=== PATIENT | male | born 1960 | race Two or more races ===

== ENCOUNTER 2017-02-05 15:57 | Inpatient (IN) | payer BC ==
[~2017-02-05] VITALS: Ht 167.6 cm; Wt 88.2 kg
--- NOTE | 2017-02-05 19:51 | NUR ---
RECIEVED PT FROM ER, ASSESSMENT, HISTORY AND MED REC COMPLETED, NO ACUTE DISTRESS NOTED, TELEMETRY AND SCD'S APPLIED PER ORDERS, IV FLUIDS INITIATED, ORIENTED TO ROOM AND CL, DENIES PAIN OR NEEDS AT THIS TIME, SR'S UP, CL IN REACH, WILL MONITOR
[2017-02-05 20:00] VITALS: BP 119/68
--- NOTE | 2017-02-05 21:40 | NUR ---
DENIES PAIN OR NEEDS, SAFETY MEASURES IN PLACE, CL IN REACH
[2017-02-05 23:07] VITALS: BP 119/68; Ht 167.6 cm; Wt 88.2 kg
--- NOTE | 2017-02-05 23:15 | NUR ---
RESTING WITH EYES CLOSED, RESP WITH EASE, NO DISTRESS NOTED, SR'S UP, CL IN REACH
--- NOTE | 2017-02-06 01:15 | NUR ---
CONTINUES TO REST WITH EYES CLOSED, NO DISTRESS NOTED, SR'S UP, CL IN REACH
[2017-02-06 04:00] VITALS: BP 122/86
--- NOTE | 2017-02-06 07:00 | NUR ---
REPORT RECEIVED FROM CO DIRECTOR NURSE. CALL LIGHT IN REACH.
--- NOTE | 2017-02-06 08:00 | NUR ---
ASSESSMENT COMPLETED. FUEL AGENT USED FOR EXPLANATION OF SURGERY. VERBALIZED UNDERSTANDING. CONSENTS SIGNED AND WITNESSED. SCDs TO BLE. CALL LIGHT IN REACH. WILL CONTINUE WITH PLAN OF CARE.
--- NOTE | 2017-02-06 08:47 | NUR ---
PREOP MEDS ADMINISTERED AND EKG COMPLETED PER ANESTHESIA ORDERS.
[2017-02-06 08:55] VITALS: BP 147/86
--- NOTE | 2017-02-06 08:58 | NUR ---
TO OR VIA BED.
[2017-02-06 10:28] VITALS: BP 120/84
--- NOTE | 2017-02-06 10:28 | NUR ---
RECEIVED BACK TO ROOM VIA BED. VSS. CALL LIGHT IN REACH. WILL REORDER TRAY.
[2017-02-06 12:00] VITALS: BP 132/68
--- NOTE | 2017-02-06 12:36 | NUR ---
CLINDAMYCIN IVPB AND NORCO PO. CALL LIGHT IN REACH.
--- NOTE | 2017-02-06 12:38 | NUR ---
PHARMACY AND PASSWORD OBTAINED FROM GIRLFRIEND.
--- NOTE | 2017-02-06 14:20 | NUR ---
RESTING WITH EYES CLOSED. RESP EVEN AND UNLABORED. CALL LIGHT IN REACH.
--- NOTE | 2017-02-06 15:04 | NUR ---
PT AOX4 RESP EVEN AND NONLABORED PT HERE FOR I&D TO LEFT BUTTOCK THIS AM. PT RECEIVING PAIN AND ANTIBIOTIC THERAPY VIA IV TO LEFT AC. SRX2 BED AT LOWEST SETTING CALL LIGHT WITHIN REACH WILL CONTINUE TO MONITOR
--- NOTE | 2017-02-06 17:16 | NUR ---
DENIES NEEDS AT THIS TIME. CALL LIGHT IN REACH.
[2017-02-06 17:35] VITALS: BP 107/79; BP 118/79
--- NOTE | 2017-02-06 17:40 | NUR ---
ASKED IF HE NEEDED A PAIN PILL. STATED HE DID. LIZZ PO. CALL LIGHT IN REACH.
--- NOTE | 2017-02-06 18:03 | NUR ---
NO CHANGES IN INITIAL ASSESSMENT. CALL LIGHT IN REACH. SCDs TO BLE. WILL CONTINUE WITH PLAN OF CARE.
[2017-02-06 20:00] VITALS: BP 119/78
[2017-02-07] VITALS: BP 122/82
--- NOTE | 2017-02-07 02:00 | NUR ---
PT IN BED WITH NO DISTRESS. RESPIRATIONS EVEN AND UNLABORED. SIDE RAILS X 2. BED LOW. CALL LIGHT IN REACH.
[2017-02-07 04:00] VITALS: BP 119/78
[2017-02-07 08:33] VITALS: BP 110/79
--- NOTE | 2017-02-07 10:53 | NUR ---
Patient Name: SCAR BLANCAS Admission Status: ER Accout number: [id number] Admission Date: 02-05-2017 : 1960 Admission Diagnosis: Attending: JESÚS Current LOS: 2 Anticipated DC Date: 02-10-2017 Planned Disposition: Home Primary Insurance: UNINSURED DISCOUNT PLAN Discharge Planning Comments: CM MET WITH PATIENT REGARDING D/C NEEDS AND PLANS. PATIENT LIVES WITH HIS GIRLFRIEND AND SHE WILL DRIVE HIM HOME AT DISCHARGE. PATIENT HAS NO STEPS OR STAIRS TO ENTER HIS HOME. PATIENT HAS NO PCP AND USES [facility] [address] [facility]. PATIENT IS INDEPENDENT WITH HIS CARE AND HAS NO DME AT HOME. PATIENT DOES NOT THINK HE WILL NEED HOME HEALTH AT THIS TIME. CM WILL CONTINUE TO FOLLOW PATIENT WITH D/C NEEDS AND PLANS. PCP NONE [facility] [address] [facility]- [phone] JOHN GEIGER (GIRLFRIEND) [phone] Senior Software Quality Engineer: Cassie Carlton Is the patient Alert and Oriented? Yes 0 * How many steps to enter\exit or inside your home? 0 0 * PCP NONE 0 * Pharmacy [facility] [address] [facility] 0 * Preadmission Environment Home with Family 0 * ADLs Independent 0 * Equipment None 0 * List name and contact numbers for known caregivers / representatives who currently or will assist patient after discharge: JOHN GEIGER (GIRLFRIEND) [phone] * Community resources currently utilized None 0 * Additional services required to return to the preadmission environment? Yes 0 * Can the patient safely return to the preadmission environment? Yes 0 * Has this patient been hospitalized within the prior 30 days at any hospital? No 0 Grand Total: 0
[2017-02-07 13:11] VITALS: BP 138/92
[2017-02-07] MEDS ORDERED: HYDROCODONE-APA1 TAB PO (13:56)
[2017-02-07] MEDS ORDERED: CLEOCIN HCL300 MG PO (13:56)
--- NOTE | 2017-02-07 13:57 | OP ---
PATIENT NAME: SCAR BLANCAS MEDICAL RECORD: [id number] :[birth year] LOCATION:[id number] [id number] ADMISSION DATE:02/05/17 SURGEON: GABY CLARKE MD DATE OF OPERATION: 02/06/2017 PREOPERATIVE DIAGNOSIS: Left buttock abscess. POSTOPERATIVE DIAGNOSIS: Left buttock abscess. PROCEDURE: I&D of the left buttock abscess. SURGEON: Gaby Clarke MD REPORT OF PROCEDURE: The patient's buttock was prepped and draped in sterile fashion. A skin incision was made overlying the abscess cavity and a large amount of purulence was encountered. Cultures were taken times 2. The wound was then irrigated out with peroxide and saline solution until the return was clear. We then packed the wound with 1 inch packing strips and dressed it with 4 x 4s and an ABD pad. COMPLICATIONS: None. CONDITION: Stable. ANESTHESIA: General endotracheal. BLOOD LOSS: 30 mL. TRANSINT:[id number] Voice Confirmation ID: [id number] DOCUMENT ID: [id number] GABY CLARKE MD at 1357 CC: [id number] DICTATION DATE: 02/06/17 0934 SINGLE END SEWER: 02/06/17 1015 ADM IN [place] [id number] [place] [phone]
[2017-02-07 16:14] VITALS: BP 119/82
--- NOTE | 2017-02-07 16:45 | NUR ---
CM REASSESSMENT NOTE: PATIENT IS BEING D/C TODAY-NO INSURANCE. PATIENTS GIRLFRIEND IS BEING TAUGHT HOW TO CHANGE DRESSING FOR PATIENT. NURSE IS INSTRUCTING GF-SUPPLIES SENT WITH PATIENT.
--- NOTE | 2017-02-07 18:40 | NUR ---
DISCUSSED DISCHARGE PAPERWORK CAREFULLY, PAYED EXTRA ATTENTION TO ANTIBIOTICS AT [facility] THAT HE NEEDS TO PLANT MAINTENANCE TECHNICIAN AND THE FOLLOW UP APPT WITH DR. CLARKE. HE AND HIS AT THE BEDSIDE VOICED UNDERSTANDING. HE WANTED TO WALK TO THE FRONT DOOR AND WAS ACCOMPANIED BY A HIDE SHAKER.
== END 2017-02-07 18:42 | disposition home or self-care (01) | DRG 603 ==
LOC: D.ER 15:57 → D.MS 19:13 → OBSVTIME 19:13 → D.MS 19:14
PROVIDERS: ADMIT Surgery
PROC: 0H98XZZ Drainage of Buttock Skin, External Approach (ICD-10-PCS; principal; 2017-02-06 09:00)
DX: L02.31 Cutaneous abscess of buttock (principal)